=== PATIENT | male | born 1960 | race Caucasian/White ===

== ENCOUNTER 2020-07-09 11:57 | Outpatient (RCR) | payer OTHER, SELFPAY ==
[2020-07-09] MEDS: COVID-19 VACC, MRNA(PFIZER)/PF 30 MCG/0.3 ML SYRINGE IM (17:57)
[2020-07-30] MEDS: COVID-19 VACC, MRNA(PFIZER)/PF 30 MCG/0.3 ML SYRINGE IM (17:45)
== END 2020-07-09 23:59 ==
LOC: IMMUN 11:57
PROVIDERS: PCP Family Medicine; Visit Provider Family Medicine
DX: Z23 Encounter for immunization (principal)
CPT/HCPCS: 0001A; 0002A; 91300

== ENCOUNTER 2024-04-12 12:26 | Inpatient (IN) | payer MEDICARE, SELFPAY ==
[2024-04-12 12:26] VITALS: BP 126/107; BP 131/108; PULSE 128; PULSE 130; RESP 14; RESP 16; TEMP 37.2; O2SAT 100; O2SAT 98; BMI 29.9
--- NOTE | 2024-04-12 12:36 | EKG12_ITS ---
Test Reason : ABD PAIN Blood Pressure : */* mmHG Vent. Rate : 95 BPM Atrial Rate : 95 BPM P-R Int : 138 ms QRS Dur : 72 ms QT Int : 342 ms P-R-T Axes : 38 29 40 degrees QTcB Int : 429 ms Normal sinus rhythm Normal ECG Confirmed by CLAUDIA KRAFT, KHLOE ([id number]), editorial cartoonist DEISY STEIN ([id number]) on 04/16/2024 1:37:36 P M Referred By: Confirmed By: KHLOE TAYLOR MD
[2024-04-12 13:01] LABS: Absolute Lymphocyte Count 1.51 X10^3/uL (0.83-4.51); Absolute Neutrophil Count 10.7 X10^3/uL (2.0-7.7); Basophil# 0.06 X10^3/uL; Basophil% 0.4 % (0-1); Hematocrit 48.9 % (40-54); Hemoglobin 15.5 g/dL (13.0-16.5); Lymphocyte # 1.51 X10^3/ul (0.83-4.51); Lymphocyte % 11.1 % (19-41); Mean Corp Hgb Conc 31.7 g/dL (32-36); Mean Corpuscular Hgb 26.8 pg (27.0-32.0); Mean Corpuscular Volume 84.5 fL (80-94); Mean Platelet Vol. 9.3 fl (6.2-12.0); Monocyte# 1.22 X10^3/uL; NRBC Flagged by Analyzer 0 % (0-5); Neutrophil # 10.73 X10^3/uL (2.7-7.7); Neutrophil % 78.8 % (47-70); Platelet Count 507 K/mm3 (150-450); RBC Distribution Width CV 14.2 % (11.6-14.6); RBC Distribution Width SD 43.3 fl (35.1-43.9); Red Blood Count 5.79 M/mm3 (4.6-6.2); White Blood Count 13.6 K/mm3 (4.4-11.0)
[2024-04-12] MEDS: 0.9% Normal Saline (1000mL) 1,000 ML 999 ML IV (13:07)
[2024-04-12] MEDS: Metoclopramide 10 MG/2 ML Vial IV (13:07)
[2024-04-12 13:15] LABS: ALB/GLOB Ratio 0.9 RATIO (0.9-2.4); AST(SGOT) 13 U/L (15-37); Alanine Aminotransfer ALT/SGPT 22 U/L (16-61); Albumin, Serum 4.2 g/dL (3.2-5.0); Alkaline Phosphatase 88 U/L (45-117); Anion Gap 10 (5-15); BUN 20 mg/dL (7-18); BUN/Creat Ratio 15.4 RATIO (10-20); Calcium,Total 9.8 mg/dL (8.5-10.1); Chloride 97 mmol/L (98-107); EST Glomerular Filtration Rate 59 mL/min (>60); Est Glom Filt Rate - Afr Amer 71 mL/min (>60); Estimated Creatinine Clearance 61.51 ml/min; Globulin 4.8 g/dL (2.2-4.2); Glucose 188 mg/dL (74-106); Lipase 28 U/L (13-75); Potassium 4.5 mmol/L (3.5-5.1); Sodium Level 134 mmol/L (136-145)
--- NOTE | 2024-04-12 13:16 | CT_ITS ---
HISTORY: Lower abdominal pain, RLQ and LLQ. TECHNIQUE: Helically acquired images were obtained of the abdomen and pelvis after the intravenous administration of 100 mL Isovue-300. A radiation dose optimization technique was used for this scan. 443 images. COMPARISON: None. FINDINGS: LOWER CHEST: Mild nodular tree-in-bud opacities in the lingula and left lower lobe. Calcified left lower lobe granuloma. BOWEL: Multiple mildly dilated fluid-filled small bowel loops with fecalization distally and right lower quadrant transition point. Mild mesenteric edema. Appendix nondilated. Mild colonic diverticulosis without acute pericolonic inflammation. Rectal anastomosis with mild circumferential rectal wall thickening or distally. PERITONEUM: Mild mesenteric edema and free fluid. LIVER: Fatty infiltration. 4 mm hypodensity in the right lobe, too small to characterize. GALLBLADDER/BILIARY TREE: Hypodense gallstone. SPLEEN/PANCREAS: Homogeneous and nonenlarged. ADRENAL GLANDS/KIDNEYS: Unremarkable. VESSELS: No abdominal aortic aneurysm. Mild atherosclerosis. PELVIC ORGANS: Mildly enlarged prostate gland with impression on the bladder base. ABDOMINAL WALL: Small fat-containing ventral and inguinal hernias. BONES: Mild degenerative change. CT/Abdomen/Pelvis W IV Cont ONLY IMPRESSION: Small bowel obstruction with right lower quadrant transition point, mild mesenteric edema, and mild free fluid. Mild rectal wall edema or inflammation distal to the rectal anastomosis. Colonic diverticulosis without acute diverticulitis. Mild infectious or inflammatory bronchiolitis in the left lung base. Hepatic steatosis. Cholelithiasis. Enlarged and heterogeneous prostate gland. Electronically Signed: Talita Han MD at 14:22 EST ,
--- NOTE | 2024-04-12 13:23 | EX.ED.DYSGE1 ---
HPI History of Present Illness Chief Complaint: Abd Pain Narrative Narrative: Patient is a 63-year-old male past medical history of colon cancer with resection in 2009 who presents to the emergency department with a chief complaint of abdominal pain. Patient states that on Sunday evening he went out to dinner and then by morning he was feeling bloated and not feeling well. He states that then he developed nausea vomiting. He states that he was seen at urgent care shortly after symptoms started for a cough and he states that he had a chest x-ray at that point in time and was normal and no concern for pneumonia. Patient states that he has lower abdominal pain on both sides and notes that he is unable to take anything in by mouth. He states that immediately if he eats or drinks anything he immediately vomits this up. He states that he has been trying Zofran that he was given by urgent care and is not helping him. PFSH PFS Allergy/AdvReac Type Severity Reaction Status Date / Time No Known Allergies Allergy Verified 04/12/24 12:27 Social History Smoking Status: Never smoker ROS ROS ED ROS Narrative Constitutional: Denies any fevers, chills, headaches, lightness, dizziness Eyes: Denies changes double vision blurry vision Cardiovascular: Denies chest pain or palpitations Respiratory: Denies coughing wheezing shortness of breath Abdomen: Complains of abdominal pain as noted above in as well as nausea vomiting : Denies any urinary symptoms Neurological: Denies numbness, weakness, tingling Musculoskeletal: Denies back pain Skin: Denies rashes or lesions EXAM Physical Exam Narrative Exam Narrative: General: Patient lying in bed rest comfortably did not appear to be acute distress Head: Atraumatic, normocephalic Eyes: PERRL body, EOMI bilateral, no conjunctival injection noted Neck: Soft, supple, trach midline Cardiovascular: Patient tachycardic with a regular rhythm no murmurs gallops rubs noted Respiratory: Clear to auscultation bilaterally Abdomen: Soft, nondistended, tenderness palpation in the right lower and left lower quadrants no rebound or guarding on exam Extremities: +5/5 strength noted in the bilateral upper and lower extremities, no pedal edema on exam Neurological: Patient following commands knew that he was at [facility] years 2024 Skin: Warm, dry, intact Const Vital Signs: 04/12/24 12:26 04/12/24 12:26 04/12/24 14:26 Temperature 99 F Temperature Source Temporal Pulse Rate 130 H 128 H 78 Respiratory Rate 14 16 16 Blood Pressure 131/108 H 126/107 H 138/76 H Blood Pressure Mean 115 113 96 Pulse Ox 98 100 98 Oxygen Delivery Method Room Air Room Air Room Air MDM MDM MDM Narrative Medical decision making narrative: Patient is a 63-year-old male who presented to the emergency department chief complaint of abdominal pain nausea vomiting not tolerating oral intake. Patient will have a workup performed here on the differential diagnose includes but not limited to viral gastroenteritis, appendicitis, pancreatitis, cholecystitis, diverticulitis. Once workup is obtained reviewed he will be reevaluated. Patient be given fluids and Reglan. Patient CBC was significant for leukocytosis of 13,000, hemoglobin stable 15.5, platelet count was noted to be 507. Patient sodium was 134, potassium normal at 4.5, creatinine normal at 1.30. Patient's AST and ALT were 13 and 22 respectively, total bilirubin elevated to 1.10. Patient's lipase normal at 28. Patient's urinalysis reviewed and showed no evidence of infection. Patient CT abdomen pelvis with IV contrast showed evidence small bowel obstruction with right lower quadrant transition point, mild mesenteric edema and mild free fluid. Mild rectal wall edema or inflammation distal to the rectal anastomosis. Colonic diverticulosis without evidence of acute diverticulitis. Mild infectious inflammatory bronchiolitis in the left lung base. Hepatic steatosis. Cholelithiasis. Enlarged and heterogeneous prostate gland noted. Patient's EKG reviewed and independently interpreted by myself showed sinus rhythm with a rate of 95 bpm. I called and discussed case with Dr. Loomis who states he will come in and evaluate the patient at bedside. He came in and evaluated the patient at bedside and states that he will admit the patient to the hospital for further evaluation management. Patient is agreeable with this plan all question concerns answered bedside. Lab Data Labs: Laboratory Results - last 24 hr 04/12/24 04/12/24 12:46 14:15 WBC 13.6 H RBC 5.79 Hgb 15.5 Hct 48.9 MCV 84.5 MCH 26.8 L MCHC 31.7 L RDW Std Deviation 43.3 RDW Coeff of Roel 14.2 Plt Count 507 H MPV 9.3 Immature Gran % (Auto) 0.700 Neut % (Auto) 78.8 H Lymph % (Auto) 11.1 L [place] % (Auto) 9.0 Eos % (Auto) 0.0 Baso % (Auto) 0.4 Absolute Neuts (auto) 10.7 H Absolute Lymphs (auto) 1.51 Nucleated RBC % 0 Sodium 134 L Potassium 4.5 Chloride 97 L Carbon Dioxide 27.0 Anion Gap 10 BUN 20 H Creatinine 1.30 Estim Creat Clear Calc 61.51 Est GFR (MDRD) Af Amer 71 Est GFR (MDRD) Non-Af 59 L BUN/Creatinine Ratio 15.4 Glucose 188 H Calcium 9.8 Total Bilirubin 1.10 H AST 13 L ALT 22 Alkaline Phosphatase 88 Total Protein 9.0 H Albumin 4.2 Globulin 4.8 H Albumin/Globulin Ratio 0.9 Lipase 28 Urine Color Yellow Urine Clarity Clear Urine pH 7.0 Ur Specific [place] 1.005 Urine Protein 15 H Urine Glucose (UA) Normal Urine Ketones 50 H Urine Occult Blood 25 H Urine Nitrite Negative Urine Bilirubin Negative Urine Urobilinogen Normal Ur Leukocyte Esterase Negative Urine RBC 0-5 SEEN Urine WBC 0 SEEN Ur Squamous Epith Cells 0-5 SEEN Urine Bacteria 0 SEEN Urine Mucus 0 SEEN Radiography Diagnostic Testing: Clinical Impression(s) from Imaging Studies Abdomen/Pelvis CT 04/12/24 13:16 IMPRESSION: Small bowel obstruction with right lower quadrant transition point, mild mesenteric edema, and mild free fluid. Mild rectal wall edema or inflammation distal to the rectal anastomosis. Colonic diverticulosis without acute diverticulitis. Mild infectious or inflammatory bronchiolitis in the left lung base. Hepatic steatosis. Cholelithiasis. Enlarged and heterogeneous prostate gland. Electronically Signed: Talita Han MD at 14:22 EST Reading Location ID and State: [facility] / [place] Tel , Service support , Discharge Plan Triage Chief Complaint: Abd Pain ED Provider: Filemon Veloz Dx/Rx/DC Orders Clinical Impression: Small bowel obstruction, Abdominal pain, Intractable nausea and vomiting Primary Care Provider: Bret Mendoza Referrals: Bret Mendoza DO [Primary Care Provider] - Print Language: German Disposition Disposition: [facility]
[2024-04-12 14:22] LABS: Bacteria 0 SEEN /hpf (None Seen); Mucous, Urine 0 SEEN /hpf (<or=2+); White Blood Cells 0 SEEN /hpf (0-5)
[2024-04-12 14:26] VITALS: BP 138/76; PULSE 78; RESP 16; O2SAT 98
[2024-04-12 14:28] LABS: Color, Urine Yellow (Yellow); Glucose, Dipstick Normal (Normal); Ketone-Dipstick 50 mg/dl (Negative); Leukocyte Esterase-Dipstick Negative /ul (Negative); Nitrite-Dipstick Negative (Negative); Occult Blood-Urine 25 /ul (Negative); Protein-Dipstick 15 mg/dl (Negative); Specific Gravity, Urine 1.005 (1.002-1.030); Urine Bilirubin Dipstick Negative (Negative); Urine Clarity Clear (Clear); Urine Urobilinogen Normal (Normal)
[2024-04-12 14:34] LABS: Red Blood Cells-Urine 0-5 SEEN /hpf (0-5); Squamous Epithelial Cells - UA 0-5 SEEN /hpf (0-5)
--- NOTE | 2024-04-12 15:13 | HP.PCM.SX_ITS ---
HPI - General HPI Narrative AMY SOLIS, is a 63 M who presents with abdominal pain and vomiting. The patient reports this has been going on for 3 days. He reports he feels very dry. He is not passing flatus or having bowel movements. He has been vomiting for 3 days as well. PFSH Allergy/AdvReac Type Severity Reaction Status Date / Time No Known Allergies Allergy Verified 04/12/24 12:27 Social History Smoking Status: Never smoker ROS Constitutional Constitutional: Reports anorexia; Denies chills, fatigue or fever(s) Eyes Eyes: Denies blurry vision ENT HEENT: Denies abnormal hearing Respiratory/Chest Respiratory/Chest: Denies cough or dyspnea Gastrointestinal Gastrointestinal: Reports abdominal pain, nausea and vomiting; Denies constipation or diarrhea Genitourinary Genitourinary: Denies change in urinary stream or difficulty urinating Musculoskeletal Musculoskeletal: Denies abnormal gait or back pain Integumentary Integumentary: Denies jaundice or new lesions Neurologic Neurologic: Denies abnormal gait Psychiatric Psychiatric: Denies anxiety Vital Signs Vital Signs Vital Signs: 04/12/24 12:26 04/12/24 12:26 04/12/24 14:26 Temperature 99 F Temperature Source Temporal Pulse Rate 130 H 128 H 78 Respiratory Rate 14 16 16 Blood Pressure 131/108 H 126/107 H 138/76 H Blood Pressure Mean 115 113 96 Pulse Ox 98 100 98 Oxygen Delivery Method Room Air Room Air Room Air Weight Weight: 196 lb 13.965 oz Body Mass Index (BMI) 29.9 Physical Exam Const oriented x3 and no apparent distress Resp normal respiratory effort Cardio regular rate and regular rhythm GI soft to palpation Inspection: abdominal distention Palpation: tender Results Lab / Micro Data 04/12/24 12:46 04/12/24 12:46 Labs: Laboratory Results - last 24 hr 04/12/24 12:46: WBC 13.6 H, RBC 5.79, Hgb 15.5, Hct 48.9, MCV 84.5, MCH 26.8 L, MCHC 31.7 L, RDW Std Deviation 43.3, RDW Coeff of Roel 14.2, Plt Count 507 H, MPV 9.3, Immature Gran % (Auto) 0.700, Neut % (Auto) 78.8 H, Lymph % (Auto) 11.1 L, [place] % (Auto) 9.0, Eos % (Auto) 0.0, Baso % (Auto) 0.4, Absolute Neuts (auto) 10.7 H, Absolute Lymphs (auto) 1.51, Nucleated RBC % 0, Sodium 134 L, Potassium 4.5, Chloride 97 L, Carbon Dioxide 27.0, Anion Gap 10, BUN 20 H, Creatinine 1.30, Estim Creat Clear Calc 61.51, Est GFR (MDRD) Af Amer 71, Est GFR (MDRD) Non-Af 59 L, BUN/Creatinine Ratio 15.4, Glucose 188 H, Calcium 9.8, Total Bilirubin 1.10 H, AST 13 L, ALT 22, Alkaline Phosphatase 88, Total Protein 9.0 H , Albumin 4.2, Globulin 4.8 H, Albumin/Globulin Ratio 0.9, Lipase 28 04/12/24 14:15: Urine Color Yellow, Urine Clarity Clear, Urine pH 7.0, Ur Specific [place] 1.005, Urine Protein 15 H, Urine Glucose (UA) Normal, Urine Ketones 50 H, Urine Occult Blood 25 H, Urine Nitrite Negative, Urine Bilirubin Negative, Urine Urobilinogen Normal, Ur Leukocyte Esterase Negative, Urine RBC 0-5 SEEN, Urine WBC 0 SEEN, Ur Squamous Epith Cells 0-5 SEEN, Urine Bacteria 0 SEEN, Urine Mucus 0 SEEN Micro: Microbiology 04/12/24 12:46 Mucosa - Nasopharyngeal SARS-CoV-2, Influenza & RSV (PCR) - Final Imaging Radiology Impression Abdomen/Pelvis CT 04/12/24 13:16 IMPRESSION: Small bowel obstruction with right lower quadrant transition point, mild mesenteric edema, and mild free fluid. Mild rectal wall edema or inflammation distal to the rectal anastomosis. Colonic diverticulosis without acute diverticulitis. Mild infectious or inflammatory bronchiolitis in the left lung base. Hepatic steatosis. Cholelithiasis. Enlarged and heterogeneous prostate gland. Electronically Signed: Talita Han MD at 14:22 EST , Assessment & Plan Assessment/Plan (1) Small bowel obstruction: PLAN: The patient has abdominal pain and vomiting. He is currently not nauseated. I reviewed his CT scan and there is concern for transition in the right lower quadrant. There is also gas in the colon despite him saying he is not passing any gas. There is some mild amount of fluid. The abdomen is soft but distended with no guarding or rebound. There is [place] is slightly elevated with sores platelets indicating that he is dehydrated and his creatinine is slightly elevated. I will give him a fluid bolus and keep him on IV fluids. I will keep him on bowel rest and if he starts having any nausea he will notify the nurse and we will place an NG tube. Plan for small bowel follow-through after rehydrated and if necessary surgery tomorrow. I discussed this briefly with him and he is agreeable with the plan. Eduardo Loomis MD Pager: [facility] [address] [place] [address], [address] [place] [address] Office:
[2024-04-12 15:25] VITALS: BP 134/61; PULSE 78; RESP 16; TEMP 36.9; O2SAT 99
[2024-04-12] MEDS: Piperacil/Tazobactam 3.375 GM in 0.9% Normal Saline (50mL MB+) 50 ML IV ×2 (15:49→21:17)
[2024-04-12] MEDS: Morphine 4 MG/ML Syringe IV (15:49)
[2024-04-12] MEDS: 0.9% Normal Saline (1000mL) 1,000 ML 100 ML IV (15:50)
[2024-04-12] MEDS: Ondansetron 4 MG/2 ML Vial IV (15:54)
[2024-04-12 16:09] VITALS: BMI 29.9
[2024-04-12 16:28] VITALS: BP 154/82; PULSE 96; RESP 18; TEMP 36.5; O2SAT 99
[2024-04-12 20:33] VITALS: BP 156/87; PULSE 90; RESP 16; TEMP 37.3; O2SAT 97
[2024-04-13 02:10] VITALS: BP 153/96; PULSE 57; RESP 16; TEMP 36.9; O2SAT 97
[2024-04-13] MEDS: 0.9% Normal Saline (1000mL) 1,000 ML 100 ML IV ×2 (05:18→18:22)
[2024-04-13] MEDS: Piperacil/Tazobactam 3.375 GM in 0.9% Normal Saline (50mL MB+) 50 ML IV ×3 (05:18→21:07)
--- NOTE | 2024-04-13 06:15 | RAD_ITS ---
STUDY: XR Abdomen 1 View 04/13/2024 6:21 AM REASON FOR EXAM: Male, 63 years old. ABDOMINAL PAIN sbo TECHNIQUE: XR Abdomen 1 View COMPARISON: None FINDINGS: Normal visualized lung bases. There is a paralytic ileus of the small intestine with mild gaseous distention. There is no demonstrated free abdominal air. The visualized liver, spleen and kidneys are grossly normal in size and morphology. Normal soft tissue structures. Normal visualized PICC. Osseous structures. RAD/Abdomen Single View (Portable) IMPRESSION: Bowel gas pattern may suggest an ileus. Obstruction cannot be excluded. Recommend CT to further evaluate. Electronically Signed: Chas Cody MD at 18:33 EST ,
[2024-04-13 06:23] LABS: Absolute Lymphocyte Count 2.19 X10^3/uL (0.83-4.51); Absolute Neutrophil Count 8.5 X10^3/uL (2.0-7.7); Basophil# 0.07 X10^3/uL; Basophil% 0.6 % (0-1); Eosinophil# 0.06 X10^3/uL; Eosinophils% 0.5 % (0-5); Hematocrit 41.5 % (40-54); Hemoglobin 12.9 g/dL (13.0-16.5); Lymphocyte # 2.19 X10^3/ul (0.83-4.51); Lymphocyte % 17.5 % (19-41); Mean Corp Hgb Conc 31.1 g/dL (32-36); Mean Corpuscular Hgb 26.2 pg (27.0-32.0); Mean Corpuscular Volume 84.3 fL (80-94); Mean Platelet Vol. 9.4 fl (6.2-12.0); Monocyte# 1.61 X10^3/uL; Monocyte% 12.8 % (0-10); NRBC Flagged by Analyzer 0 % (0-5); Neutrophil # 8.53 X10^3/uL (2.7-7.7); POSITIVE DIFFERENTIAL YES; Platelet Count 448 K/mm3 (150-450); RBC Distribution Width CV 14.2 % (11.6-14.6); RBC Distribution Width SD 43.6 fl (35.1-43.9); Red Blood Count 4.92 M/mm3 (4.6-6.2); White Blood Count 12.5 K/mm3 (4.4-11.0)
[2024-04-13 06:50] LABS: Anion Gap 6 (5-15); BUN 18 mg/dL (7-18); BUN/Creat Ratio 17.3 RATIO (10-20); Calcium,Total 8.8 mg/dL (8.5-10.1); Chloride 107 mmol/L (98-107); Creatinine, Serum 1.04 mg/dL (0.70-1.30); EST Glomerular Filtration Rate 76 mL/min (>60); Est Glom Filt Rate - Afr Amer 92 mL/min (>60); Estimated Creatinine Clearance 76.88 ml/min; Glucose 128 mg/dL (74-106); Potassium 4.2 mmol/L (3.5-5.1); Sodium Level 138 mmol/L (136-145)
[2024-04-13 07:07] LABS: Differential Indicated SCAN CRITERIA MET
--- NOTE | 2024-04-13 07:16 | PCM.PN.SRG ---
Subjective Subjective The patient reports no nausea or pain overnight. He says he is passing gas he has had several flatus. He denies pain in and says this distention feels better. Objective Data Objective Data Vital Signs: Vital Signs Temp Pulse Resp BP Pulse Ox O2 Del Method 98.4 F 57 L 16 153/96 H 97 Room Air 04/13/24 02:10 04/13/24 02:10 04/13/24 02:10 04/13/24 02:10 04/13/24 02:10 04/13/24 02:10 Oxygen Delivery Method Room Air Weight: 196 lb 13.965 oz Body Mass Index (BMI) 29.9 Intake & Output: Intake and Output for Last 24 Hours 04/11/24 04/12/24 04/13/24 23:59 23:59 23:59 Intake Total 1221.67 / 1221.67 878.33 / 878.33 Balance 1221.67 / 1221.67 878.33 / 878.33 Lab / Micro Data 04/13/24 05:56 04/13/24 05:56 Labs: Laboratory Results - last 24 hr 04/12/24 12:46: WBC 13.6 H, RBC 5.79, Hgb 15.5, Hct 48.9, MCV 84.5, MCH 26.8 L, MCHC 31.7 L, RDW Std Deviation 43.3, RDW Coeff of Roel 14.2, Plt Count 507 H, MPV 9.3, Immature Gran % (Auto) 0.700, Neut % (Auto) 78.8 H, Lymph % (Auto) 11.1 L, [place] % (Auto) 9.0, Eos % (Auto) 0.0, Baso % (Auto) 0.4, Absolute Neuts (auto) 10.7 H, Absolute Lymphs (auto) 1.51, Nucleated RBC % 0, Sodium 134 L, Potassium 4.5, Chloride 97 L, Carbon Dioxide 27.0, Anion Gap 10, BUN 20 H, Creatinine 1.30, Estim Creat Clear Calc 61.51, Est GFR (MDRD) Af Amer 71, Est GFR (MDRD) Non-Af 59 L, BUN/Creatinine Ratio 15.4, Glucose 188 H, Calcium 9.8, Total Bilirubin 1.10 H, AST 13 L, ALT 22, Alkaline Phosphatase 88, Total Protein 9.0 H, Albumin 4.2, Globulin 4.8 H, Albumin/Globulin Ratio 0.9, Lipase 28 04/12/24 14:15: Urine Color Yellow, Urine Clarity Clear, Urine pH 7.0, Ur Specific [place] 1.005, Urine Protein 15 H, Urine Glucose (UA) Normal, Urine Ketones 50 H, Urine Occult Blood 25 H, Urine Nitrite Negative, Urine Bilirubin Negative, Urine Urobilinogen Normal, Ur Leukocyte Esterase Negative, Urine RBC 0-5 SEEN, Urine WBC 0 SEEN, Ur Squamous Epith Cells 0-5 SEEN, Urine Bacteria 0 SEEN, Urine Mucus 0 SEEN 04/13/24 05:56: WBC 12.5 H, RBC 4.92, Hgb 12.9 L, Hct 41.5, MCV 84.3, MCH 26.2 L, MCHC 31.1 L, RDW Std Deviation 43.6, RDW Coeff of Roel 14.2, Plt Count 448, MPV 9.4, Immature Gran % (Auto) 0.600, Neut % (Auto) 68.0, Lymph % (Auto) 17.5 L, [place] % (Auto) 12.8 H, Eos % (Auto) 0.5, Baso % (Auto) 0.6, Absolute Neuts (auto) 8.5 H, Absolute Lymphs (auto) 2.19, Nucleated RBC % 0, Sodium 138, Potassium 4.2, Chloride 107, Carbon Dioxide 25.0, Anion Gap 6, BUN 18, Creatinine 1.04, Estim Creat Clear Calc 76.88, Est GFR (MDRD) Af Amer 92, Est GFR (MDRD) Non-Af 76, BUN/Creatinine Ratio 17.3, Glucose 128 H, Calcium 8.8 Micro: Microbiology 04/12/24 12:46 Mucosa - Nasopharyngeal SARS-CoV-2, Influenza & RSV (PCR) - Final Radiography Diagnostic Testing: Radiology Impression Abdomen/Pelvis CT 04/12/24 13:16 IMPRESSION: Small bowel obstruction with right lower quadrant transition point, mild mesenteric edema, and mild free fluid. Mild rectal wall edema or inflammation distal to the rectal anastomosis. Colonic diverticulosis without acute diverticulitis. Mild infectious or inflammatory bronchiolitis in the left lung base. Hepatic steatosis. Cholelithiasis. Enlarged and heterogeneous prostate gland. Electronically Signed: Talita Han MD at 14:22 EST , Physical Exam Const oriented x3 and no apparent distress Resp normal respiratory effort GI soft to palpation Inspection: abdominal distention Palpation: Negative for tender Assessment & Plan Assessment/Plan (1) Small bowel obstruction: PLAN: The patient reports no nausea or vomiting overnight and he is passing gas now. His abdomen is less distended and he is not having any pain. He feels just like he needs to pass more gas. I will order a small bowel follow-through for today. If the contrast does not advance I will take him for surgery this afternoon. If he develops any nausea or vomiting with contrast placed NG and I will take him for surgery. Eduardo Loomis MD Pager: [facility] [address] [place] [address], [address] [place] [address] Office:
[2024-04-13 07:51] LABS: Reactive Lymphocyte 1+
[2024-04-13 07:56] VITALS: BP 152/81; PULSE 84; RESP 18; TEMP 36.7; O2SAT 98
--- NOTE | 2024-04-13 09:10 | RAD_ITS ---
INDICATION: Small bowel obstruction. Give contrast PO, take KUB 1 hour after finishing EXAMINATION/TECHNIQUE: X-RAY - XR Abdomen 2 views of the abdomen were obtained 1 hour subsequent to oral administration of Gastrografin. COMPARISON: April 13, 2024 at 6:[address] dated April 12, 2024 FINDINGS: BOWEL GAS PATTERN: There is contrast visualized within a nondistended stomach. There are persistent dilated loops of small bowel. There is contrast within the proximal and mid small bowel. No contrast is visualized within the colon. FREE AIR: Not assessed on a single supine view. ORGANOMEGALY: Not seen. CALCIFICATIONS: No abnormal calcifications observed. LOWER CHEST: No acute pathology. BONES AND SOFT TISSUES: No acute pathology. RAD/Abdomen Single View (Portable) IMPRESSION: Findings suggestive of a small bowel ileus or obstruction. Electronically Signed: Agnes Maria MD at 9:34 EST ,
[2024-04-13] MEDS: 0.9% Saline Lock 10 ML Syringe IV (09:40)
[2024-04-13] MEDS: Ondansetron 4 MG/2 ML Vial IV (09:40)
[2024-04-13] MEDS: Pantoprazole Sodium 40 MG in 0.9% Normal Saline (100mL MB+) 100 ML 330 MG IV (11:09)
--- NOTE | 2024-04-13 11:58 | RAD_ITS ---
INDICATION: Small bowel obstruction EXAMINATION/TECHNIQUE: X-RAY - XR Abdomen 1 View COMPARISON: April 13 at 9:14 AM FINDINGS: BOWEL GAS PATTERN: There is persistent contrast within the stomach. There are persistent dilated contrast and gas-filled loops of small bowel. There are foci of gas within the expected region of the colon. FREE AIR: Not assessed on a single supine view. ORGANOMEGALY: Not seen. CALCIFICATIONS: No abnormal calcifications observed. LOWER CHEST: No acute pathology. BONES AND SOFT TISSUES: No acute pathology. RAD/Abdomen Single View (Portable) IMPRESSION: Findings concerning for a small bowel obstruction or ileus. Electronically Signed: Agnes Maria MD at 13:27 EST ,
[2024-04-13 14:00] VITALS: BP 155/84; PULSE 83; RESP 18; TEMP 36.9; O2SAT 98
--- NOTE | 2024-04-13 14:20 | RAD_ITS ---
INDICATION: SBO, 6 HOUR EXAMINATION/TECHNIQUE: X-RAY - XR Abdomen 3 views COMPARISON: April 13, 2024 at 12:00 PM FINDINGS: BOWEL GAS PATTERN: There are persistent dilated loops of small bowel containing contrast. There is assisting contrast within the stomach. Contrast is now visualized within the proximal ascending colon. FREE AIR: Not assessed on a single supine view. ORGANOMEGALY: Not seen. CALCIFICATIONS: No abnormal calcifications observed. LOWER CHEST: No acute pathology. BONES AND SOFT TISSUES: No acute pathology. RAD/Abdomen Single View IMPRESSION: Findings suggestive of a partial small bowel obstruction or ileus. Electronically Signed: Agnes Maria MD at 14:42 EST ,
[2024-04-13 15:06] VITALS: BP 155/81; PULSE 83; RESP 16; TEMP 36.9; O2SAT 98
[2024-04-13] MEDS: proCHLORPERazine 10 MG/2 ML Vial IV (15:40)
--- NOTE | 2024-04-13 16:01 | NURSING ---
Ng placed in right nare. Xray called to verified palcement.
--- NOTE | 2024-04-13 16:05 | RAD_ITS ---
INDICATION: ng placement EXAMINATION/TECHNIQUE: X-RAY - XR Abdomen 1 View COMPARISON: April 13, 2024 at 2:10 PM FINDINGS: BOWEL GAS PATTERN: There is contrast visualized within the stomach. There are persistent dilated loops of small bowel. There is contrast within the small bowel and ascending colon. There is a nasogastric tube terminating within the expected region of the distal gastric body. FREE AIR: Not assessed on a single supine view. ORGANOMEGALY: Not seen. CALCIFICATIONS: No abnormal calcifications observed. LOWER CHEST: No acute pathology. BONES AND SOFT TISSUES: No acute pathology. RAD/Abdomen Single View (Portable) IMPRESSION: Nasogastric tube terminating within the expected region of the gastric body. Small bowel ileus or partial small bowel obstruction. Electronically Signed: Agnes Maria MD at 16:26 EST ,
[2024-04-13 20:00] VITALS: BP 153/89; PULSE 98; RESP 16; TEMP 36.7; O2SAT 97
[2024-04-14 02:32] VITALS: BP 159/89; PULSE 96; RESP 16; TEMP 37.1; O2SAT 95
[2024-04-14] MEDS: Piperacil/Tazobactam 3.375 GM in 0.9% Normal Saline (50mL MB+) 50 ML IV (05:31)
--- NOTE | 2024-04-14 06:30 | RAD_ITS ---
INDICATION: sbo EXAMINATION/TECHNIQUE: X-RAY - Supine AP view. COMPARISON: 04/13/2024. FINDINGS: Enteric tube side-port and distal tip are distal to the GE junction and right of midline likely in the distal stomach/proximal duodenum. BOWEL GAS PATTERN: Again seen are dilated loops of small bowel. Contrast is seen throughout the colon. No significant stool retention. CALCIFICATIONS: No abnormal calcifications identified. LOWER CHEST: Visualized lung bases are unremarkable. BONES AND SOFT TISSUES: No acute abnormality. RAD/Abdomen Single View (Portable) IMPRESSION: Dilated loops of small bowel with contrast seen throughout the colon. Findings most likely represent ileus or partial small bowel obstruction. Electronically Signed: Brian Aguilar DO at 7:39 EST ,
[2024-04-14 06:35] VITALS: BMI 29.9
[2024-04-14 06:51] LABS: Absolute Lymphocyte Count 2.19 X10^3/uL (0.83-4.51); Absolute Neutrophil Count 7.8 X10^3/uL (2.0-7.7); Basophil# 0.07 X10^3/uL; Basophil% 0.6 % (0-1); Eosinophil# 0.09 X10^3/uL; Eosinophils% 0.8 % (0-5); Hematocrit 38.3 % (40-54); Hemoglobin 11.9 g/dL (13.0-16.5); Lymphocyte # 2.19 X10^3/ul (0.83-4.51); Lymphocyte % 18.6 % (19-41); Mean Corp Hgb Conc 31.1 g/dL (32-36); Mean Corpuscular Hgb 26.7 pg (27.0-32.0); Mean Corpuscular Volume 85.9 fL (80-94); Mean Platelet Vol. 9.3 fl (6.2-12.0); Monocyte# 1.52 X10^3/uL; Monocyte% 12.9 % (0-10); NRBC Flagged by Analyzer 0 % (0-5); Neutrophil # 7.81 X10^3/uL (2.7-7.7); Neutrophil % 66.3 % (47-70); POSITIVE DIFFERENTIAL YES; Platelet Count 418 K/mm3 (150-450); RBC Distribution Width CV 14.1 % (11.6-14.6); RBC Distribution Width SD 43.8 fl (35.1-43.9); Red Blood Count 4.46 M/mm3 (4.6-6.2); White Blood Count 11.8 K/mm3 (4.4-11.0)
[2024-04-14 07:14] LABS: Differential Indicated SCAN CRITERIA MET
[2024-04-14 07:16] LABS: Anion Gap 5 (5-15); BUN 18 mg/dL (7-18); BUN/Creat Ratio 19.3 RATIO (10-20); Calcium,Total 8.5 mg/dL (8.5-10.1); Chloride 111 mmol/L (98-107); Creatinine, Serum 0.93 mg/dL (0.70-1.30); EST Glomerular Filtration Rate 86 mL/min (>60); Est Glom Filt Rate - Afr Amer 104 mL/min (>60); Estimated Creatinine Clearance 85.98 ml/min; Glucose 112 mg/dL (74-106); Potassium 3.7 mmol/L (3.5-5.1); Sodium Level 143 mmol/L (136-145)
[2024-04-14 07:55] LABS: Hemoglobin A1c 6.1 % (3.8-5.6)
--- NOTE | 2024-04-14 08:12 | NURSING ---
NG out at this time.
[2024-04-14 08:19] VITALS: BP 155/75; PULSE 89; RESP 18; TEMP 36.7; O2SAT 96
--- NOTE | 2024-04-14 09:15 | PN.SURG_ITS ---
Subjective Subjective He is not having any pain or abdominal distention this morning.Patient reports having multiple liquid bowel movements overnight. Objective Data Objective Data Vital Signs: Vital Signs Temp Pulse Resp BP Pulse Ox O2 Del Method 98.1 F 89 18 155/75 H 96 Room Air 04/14/24 08:19 04/14/24 08:19 04/14/24 08:19 04/14/24 08:19 04/14/24 08:19 04/14/24 08:19 Oxygen Delivery Method Room Air Weight: 196 lb 13.965 oz Body Mass Index (BMI) 29.9 Intake & Output: Intake and Output for Last 24 Hours 04/12/24 04/13/24 04/14/24 23:59 23:59 23:59 Intake Total 1221.67 / 1221.67 2538.33 / 2568.33 1154.79 / 1154.79 Output Total 200 / 500 300 / 300 Balance 1221.67 / 1221.67 2338.33 / 2068.33 854.79 / 854.79 Lab / Micro Data 04/14/24 06:08 04/14/24 06:08 Labs: Laboratory Results - last 24 hr 04/14/24 06:08: WBC 11.8 H, RBC 4.46 L, Hgb 11.9 L, Hct 38.3 L, MCV 85.9, MCH 26.7 L, MCHC 31.1 L, RDW Std Deviation 43.8, RDW Coeff of Roel 14.1, Plt Count 418, MPV 9.3, Immature Gran % (Auto) 0.800, Neut % (Auto) 66.3, Lymph % (Auto) 18.6 L, [place] % (Auto) 12.9 H, Eos % (Auto) 0.8, Baso % (Auto) 0.6, Absolute Neuts (auto) 7.8 H, Absolute Lymphs (auto) 2.19, Nucleated RBC % 0, Differential Comment COMMENT, Diff Path Review August, Sodium 143, Potassium 3.7, Chloride 111 H, Carbon Dioxide 27.0, Anion Gap 5, BUN 18, Creatinine 0.93, Estim Creat Clear Calc 85.98, Est GFR (MDRD) Af Amer 104, Est GFR (MDRD) Non-Af 86, BUN/Creatinine Ratio 19.3, Glucose 112 H, Hemoglobin A1c 6.1 H, Calcium 8.5 Micro: Microbiology 04/12/24 12:46 Mucosa - Nasopharyngeal SARS-CoV-2, Influenza & RSV (PCR) - Final Radiography Diagnostic Testing: Radiology Impression KUB X-Ray 04/13/24 06:15 IMPRESSION: Bowel gas pattern may suggest an ileus. Obstruction cannot be excluded. Recommend CT to further evaluate. Electronically Signed: Chas Cody MD at 18:33 EST , KUB X-Ray 04/13/24 09:10 IMPRESSION: Findings suggestive of a small bowel ileus or obstruction. Electronically Signed: Agnes Maria MD at 9:34 EST , KUB X-Ray 04/13/24 11:58 IMPRESSION: Findings concerning for a small bowel obstruction or ileus. Electronically Signed: Agnes Maria MD at 13:27 EST , KUB X-Ray 04/13/24 14:20 IMPRESSION: Findings suggestive of a partial small bowel obstruction or ileus. Electronically Signed: Agnes Maria MD at 14:42 EST , KUB X-Ray 04/13/24 16:05 IMPRESSION: Nasogastric tube terminating within the expected region of the gastric body. Small bowel ileus or partial small bowel obstruction. Electronically Signed: Agnes Maria MD at 16:26 EST , KUB X-Ray 04/14/24 06:30 IMPRESSION: Dilated loops of small bowel with contrast seen throughout the colon. Findings most likely represent ileus or partial small bowel obstruction. Electronically Signed: Brian Aguilar, at 7:39 EST , Physical Exam Const oriented x3 and no apparent distress Resp normal respiratory effort GI soft to palpation and non-tender Assessment & Plan Assessment/Plan (1) Small bowel obstruction: PLAN: Patient has small bowel follow-through yesterday. The contrast did make it to the colon and he is having bowel movements this morning. He still has some dilated loops of small bowel. He is not having any distention and his bowel sounds are improved. He had an NG in overnight which only put out 300 cc of bilious material with no feculent material or signs of obstruction. I will remove the NG and start some sips and chips and go very slowly diet and possibly start clears for lunch. If he does not tolerate a diet he will go for surgery tomorrow. Patient is in agreement with the plan. Eduardo Loomis MD Pager: [facility] [address] [place] [address], [address] [place] [address] Office:
[2024-04-14] MEDS: Acetaminophen 325 MG Tablet 650 MG PO (09:58)
[2024-04-14] MEDS: Pantoprazole Sodium 40 MG in 0.9% Normal Saline (100mL MB+) 100 ML 330 MG IV (10:01)
--- NOTE | 2024-04-14 10:59 | CASEMGMT ---
GIORGI ANDERSON Assessment Face to Face with patient for initial transition planning/care coordination assessment. GIORGI ANDERSON introduced self and role at [facility], pt voices understanding. Pt is A&Ox4 and is resting comfortably in bed and is calm. Care providers, pharmacy, and demographics verified. Admitting dx: SBO AUBREYE Strata: 1 PCP: Bret Mendoza Specialists: Denies Preferred Pharmacy: [facility] Insurance: [facility] Prescription Benefit: Yes LNOK: Sahra () Living Arrangements:Pt lives with his in a ranch style home with 2 steps to enter ADLs/IADLs: Ind Transportation: self, DME: Functioning BGM with sufficient supplies. BP Monitor. Pulse ox HHC/SNF: Denies Hx or needs Pt?s goal: Return home Plan: Home with pt , no additional needs. 6-click score is 24. Pt denies OP Tx or CCN needs. Pt states that he feels safe returning home with his once he is medically ready and denies further questions or concerns at this time. Payton Slaughter RN, CM
--- NOTE | 2024-04-14 11:00 | NURSING ---
Ambulating in the gonzalez at this time. HAs been tolerating ice chips and sips and water thus far.
--- NOTE | 2024-04-14 12:14 | CHAPLAIN ---
Type of Pastoral Visit _x__ Initial Visit ___ Follow-up Visit ___ On-call Visit ___ General Patient Visit ___ Spiritual Assessment ___ Family Conference ___ Bereavement ___ Rapid Response ___ Code Blue ___ Other (describe below) Pastoral Care Referral From _x__ Patient ___ Family ___ Nurse ___ Physician ___ Jewelry Technician ___ Upper Leather Cutter ___ Other (describe below) Sacrament/Intervention _x__ Active listening ___ Anointing ___ Amish ___ Bereavement ___ Communion _x__ Mari exploration ___ ___ Life review _x__ Prayer ___ Reconciliation ___ Sacrament of Sick ___ Supportive presence ___ Wedding ___ Other (describe below) Pastoral Comments patient is making improvements and is hopeful about his outcome; pt speaks of having many prayers being given and they are working; pt has a excavating contractor that visited this morning; pt welcomes time to talk and asks his own questions; pt affirms the care of this hospital and would recommend it over where my doctor works; pt welcomes more prayer; no other needs at this time
[2024-04-14 16:23] VITALS: BP 147/73; PULSE 72; RESP 19; TEMP 36.7; O2SAT 99
[2024-04-14 16:54] LABS: Bedside Glucose 171 mg/dL (74-106)
[2024-04-14 22:20] VITALS: BP 153/78; PULSE 70; RESP 18; TEMP 37; O2SAT 99
[2024-04-14 23:48] LABS: Bedside Glucose 127 mg/dL (74-106)
[2024-04-15] VITALS (14 sets, daily range): BP systolic 147–168; BP diastolic 56–90; PULSE 71–98; RESP 12–20; TEMP 36.6–37.4; O2SAT 91–100; BMI 29.9
[2024-04-15 06:57] LABS: Absolute Lymphocyte Count 2.45 X10^3/uL (0.83-4.51); Absolute Neutrophil Count 7.6 X10^3/uL (2.0-7.7); Basophil# 0.07 X10^3/uL; Basophil% 0.6 % (0-1); Eosinophil# 0.14 X10^3/uL; Eosinophils% 1.2 % (0-5); Hematocrit 37.4 % (40-54); Hemoglobin 11.3 g/dL (13.0-16.5); Lymphocyte # 2.45 X10^3/ul (0.83-4.51); Lymphocyte % 20.9 % (19-41); Mean Corp Hgb Conc 30.2 g/dL (32-36); Mean Corpuscular Hgb 25.9 pg (27.0-32.0); Mean Corpuscular Volume 85.6 fL (80-94); Mean Platelet Vol. 9.2 fl (6.2-12.0); Monocyte# 1.33 X10^3/uL; Monocyte% 11.4 % (0-10); NRBC Flagged by Analyzer 0 % (0-5); Neutrophil # 7.62 X10^3/uL (2.7-7.7); Platelet Count 427 K/mm3 (150-450); RBC Distribution Width CV 13.9 % (11.6-14.6); RBC Distribution Width SD 43.3 fl (35.1-43.9); Red Blood Count 4.37 M/mm3 (4.6-6.2); White Blood Count 11.7 K/mm3 (4.4-11.0)
--- NOTE | 2024-04-15 07:25 | PCM.PN.SRG ---
Subjective Subjective The patient tolerated clears yesterday. However he reported that after dinner he started feeling more distended and overnight this did not resolve. He is not passing any flatus. He denies vomiting. He feels more distended than yesterday. Objective Data Objective Data Vital Signs: Vital Signs Temp Pulse Resp BP Pulse Ox O2 Del Method 98.2 F 80 14 155/83 H 96 Room Air 04/15/24 04:42 04/15/24 04:42 04/15/24 04:42 04/15/24 04:42 04/15/24 04:42 04/15/24 04:42 Oxygen Delivery Method Room Air Weight: 196 lb 13.965 oz Body Mass Index (BMI) 29.9 Intake & Output: Intake and Output for Last 24 Hours 04/13/24 04/14/24 04/15/24 23:59 23:59 23:59 Intake Total 2538.33 / 2568.33 2564.79 / 2564.79 450 / 450 Output Total 200 / 500 300 / 300 Balance 2338.33 / 2068.33 2264.79 / 2264.79 450 / 450 Lab / Micro Data 04/15/24 06:03 04/14/24 06:08 Labs: Laboratory Results - last 24 hr 04/14/24 06:08: Differential Comment COMMENT, Diff Path Review Rose river[place], Hemoglobin A1c 6.1 H 04/14/24 16:24: POC Glucose 171 H 04/14/24 22:27: POC Glucose 127 H 04/15/24 06:03: WBC 11.7 H, RBC 4.37 L, Hgb 11.3 L, Hct 37.4 L, MCV 85.6, MCH 25.9 L, MCHC 30.2 L, RDW Std Deviation 43.3, RDW Coeff of Roel 13.9, Plt Count 427, MPV 9.2, Immature Gran % (Auto) 0.900, Neut % (Auto) 65.0, Lymph % (Auto) 20.9, [place] % (Auto) 11.4 H, Eos % (Auto) 1.2, Baso % (Auto) 0.6, Absolute Neuts (auto) 7.6, Absolute Lymphs (auto) 2.45, Nucleated RBC % 0 Micro: Microbiology 04/12/24 12:46 Mucosa - Nasopharyngeal SARS-CoV-2, Influenza & RSV (PCR) - Final Radiography Diagnostic Testing: Radiology Impression KUB X-Ray 04/14/24 06:30 IMPRESSION: Dilated loops of small bowel with contrast seen throughout the colon. Findings most likely represent ileus or partial small bowel obstruction. Electronically Signed: Brian Aguilar, at 7:39 EST Reading Location ID and State: [facility] / [place] Tel , Service support , Physical Exam Const oriented x3 and no apparent distress Resp normal respiratory effort GI soft to palpation Inspection: abdominal distention Assessment & Plan Assessment/Plan (1) Small bowel obstruction: PLAN: The patient has a partial small bowel obstruction that is not resolving conservatively. I recommended surgery at this point. I discussed laparoscopy with possible conversion to open depending on scar tissue and possible bowel resection. I discussed the risks including but not limited to bleeding, infection, injury other organs. Patient understands the risks and is willing to proceed. Eduardo Loomis MD Pager: [facility] [address] [place] [address], [address] [place] [address] Office:
[2024-04-15 07:47] LABS: Anion Gap 4 (5-15); BUN 13 mg/dL (7-18); BUN/Creat Ratio 14.1 RATIO (10-20); Calcium,Total 8.6 mg/dL (8.5-10.1); Chloride 107 mmol/L (98-107); Creatinine, Serum 0.92 mg/dL (0.70-1.30); EST Glomerular Filtration Rate 87 mL/min (>60); Est Glom Filt Rate - Afr Amer 105 mL/min (>60); Estimated Creatinine Clearance 86.91 ml/min; Glucose 112 mg/dL (74-106); Potassium 3.4 mmol/L (3.5-5.1); Sodium Level 140 mmol/L (136-145)
[2024-04-15] MEDS: 0.9% Normal Saline (1000mL) 1,000 ML 15 ML IV (09:00)
--- NOTE | 2024-04-15 09:52 | PCM.PRE.AN2 ---
ASA Classification* ASA Classification ASA Classification: 2 Assessment & Plan Anesthesia* Anesthesia Assessment Anesthesia Assessment: Discussed sedation and/or anesthesia options, risks, benefits, and alternatives with patient/parents/legal guardian/POA. Questions invited. The patient/parents/legal guardian/POA seems to understand and agrees to proceed with anesthesia plan. Reviewed the physical assessment, medical history, allergy history and patient home medications list prior to surgery/procedure/anesthetic and documented any changes. Performed airway and anesthesia risk assessments. Anesthesia Type Anesthesia Type: General History Source History Obtained from:: Patient and Chart Anesthesia Focused Assessment* Temperature: 98.6 F Pulse Rate: 71 Blood Pressure: 167/88 Respiratory Rate: 12 Pulse Ox: 98 Oxygen Delivery Method: Room Air Airway Assessment Mouth opens: >3 cm Mallampati Score: II Teeth Condition: Intact Neck Range of motion (ROM): Limited ROM (Slight decrease in extension) Focused Labs Anesthesia Preop lab: CBC WBC 11.7 K/mm3 (4.4-11.0) H 04/15/24 06:03 RBC 4.37 M/mm3 (4.6-6.2) L 04/15/24 06:03 Hgb 11.3 g/dL (13.0-16.5) L 04/15/24 06:03 Hct 37.4 % (40-54) L 04/15/24 06:03 Plt Count 427 K/mm3 (150-450) 04/15/24 06:03 CHEMISTRY Potassium 3.4 mmol/L (3.5-5.1) L 04/15/24 06:03 Sodium 140 mmol/L (136-145) 04/15/24 06:03 BUN 13 mg/dL (7-18) 04/15/24 06:03 Creatinine 0.92 mg/dL (0.70-1.30) 04/15/24 06:03 Glucose 112 mg/dL (74-106) H 04/15/24 06:03 POC Glucose 127 mg/dL (74-106) H 04/14/24 22:27 COAG Pre-Assessment Diagnosis/Proposed Procedure Planned Operative Procedure(s): Exploratory laparoscopy, possible open, possible bowel resection. Anesthesia History Anesthesia History - national sales representative: Anesthesia History - national sales representative Hx Hospitalization Any Problems With Anesthesia No 04/15/24 08:04 Cholinesterase deficiency No 04/15/24 08:04 You/Your Family Experience No 04/15/24 08:04 fever (hyperthermia) with Relationship Recent Exposure to Contagious No 04/15/24 08:04 Disease Does patient have nerve No 04/15/24 08:04 stimulator Patient instructed to have device shut off --Does patient have Pacemaker No 04/15/24 08:04 or ICD? When Was Last Pacemaker Check QUESTION #4 FULL TEXT: You/Your Family Experience fever (hyperthermia) with Anesthesia Last Oral Intake Last Oral intake: Last Oral Intake NPO since 07:07 04/15/24 08:04 Meds taken in AM with sips of No 04/15/24 08:04 water? Meds patient instructed to take am of surgery Any additional information?: Yes NPO since: 02:00 (Patient had water at 2 AM.) PONV PONV - national sales representative: PONV - national sales representative Female HX of Motion Sickness HX of N/V After Surgery Non-Smoker Duration of Surgery greater than 60 minutes Number of Risk Factors PONV Score Height & Weight Height & Weight: Anesthesia: Height & Weight Height 5 ft 8 in 04/15/24 08:04 Weight: 89.3 kg 04/15/24 08:04 Body Mass Index (BMI) 29.9 04/15/24 08:04 Respiratory Assessment Respiratory Assessment - national sales representative: Respiratory Tract Infection Hx - national sales representative Hx Respiratory Tract Infection Yes: Cold s/sx last week 04/15/24 08:04 Any additional information?: Yes Hx Respiratory Tract Infection: Yes (+ cough.) STOP Sleep Apnea STOP Sleep Apnea - national sales representative: STOP Sleep Apnea - national sales representative Hx Hypertension Yes 04/12/24 16:09 Hx Sleep Apnea No 04/12/24 16:09 CPAP BIPAP Do you snore loudly (louder Yes 04/12/24 16:09 than talking or can be heard Do you often feel tired/ No 04/12/24 16:09 fatigued/ sleepy during daytime? Has anyone observed you stop No 04/12/24 16:09 breathing during sleep? STOP Results Positive 04/12/24 16:09 QUESTION #5 FULL TEXT : Do you snore loudly (louder than talking or can be heard through closed doors)? Tobacco Use History Tobacco Use History - national sales representative: Tobacco Use History - national sales representative Tobacco Use Smoking Status Never smoker 04/12/24 16:09 Hx Tobacco Use No 04/12/24 16:09 Years Smoking Packs Smoked per Day Smoking Cessation Date was within the last 15 years Hx Smoking Cessation Date Hx Smoking Cessation Counseling Hematologic Medial History Hematologic Hx - national sales representative: Hematologic Medical Hx - erosion control coordinator Hx of Blood Transfusion No 04/12/24 16:09 Hx of Transfusion in last 3 No 04/12/24 16:09 Months Date of Last Transfusion (if within last 3 months) Ever experience any problems No 04/12/24 16:09 with transfusion(s)? Specify any problems Hx of Preganancy in last 3 N/A 04/12/24 16:09 Months Nurse Filling Out Transfusion NMARTY 04/12/24 16:09 & Questions: Date: 04/12/24 04/12/24 16:09 Time: 16:19 04/12/24 16:09 Patient unable to answer at this time (ie. confused, unrespo /Reproduction History /Reproductive History - national sales representative: /Reproductive Hx- national sales representative Hx Now No: na 04/15/24 08:04 Gestational Age (in weeks): EDC: Hx Hx Para Hx Section SAB No 04/15/24 08:04 Active Medications Active Medications: Current Medications Generic Name Dose Route Start Last Admin Trade Name Freq PRN Reason Stop Dose Admin Acetaminophen 650 mg 04/14/24 09:00 04/14/24 09:58 Acetaminophen 325 Mg Tablet PO 650 mg Q4H PRN PRN Administration Pain 1-10 or Fever Pantoprazole Sodium 40 mg/ 110 mls @ 330 mls/hr 04/13/24 10:00 04/14/24 10:25 Sodium Chloride IV Infused Q24 SISI Infusion Sodium Chloride 100 mls @ 15 mls/hr 04/12/24 16:27 IV .Q6H40M PRN Saline Flush Sodium Chloride 100 mls @ 15 mls/hr 04/12/24 16:27 IV .Q6H40M PRN Additional IVPB Infusion Sodium Chloride 1,000 mls @ 15 mls/hr 04/15/24 08:55 IV 04/20/24 22:14 .Q48H SISI Protocol Morphine Sulfate 2 - 4 mg 04/12/24 15:17 Morphine 2 Mg/Ml Syringe IV Q2H PRN PRN Pain Score 4-10 Morphine Sulfate 2 - 4 mg 04/12/24 15:38 Morphine 4 Mg/Ml Syringe IV Q2H PRN PRN Pain Score 4-10 Ondansetron HCl 4 mg 04/12/24 15:17 04/13/24 09:40 Ondansetron 4 Mg/2 Ml Vial IV 4 mg Q6H PRN PRN Administration NAUSEA/VOMITING Prochlorperazine Edisylate 10 mg 04/13/24 14:40 04/13/24 15:40 Prochlorperazine 10 Mg/2 Ml Vial IV 10 mg Q6H PRN PRN Administration NAUSEA/VOMITING Sodium Chloride 10 - 40 ml 04/12/24 15:17 04/13/24 09:40 0.9% Saline Lock 10 Ml Syringe IV 10 ml UD PRN Administration SALINE FLUSH Sodium Chloride 10 - 40 ml 04/12/24 15:17 0.9% Saline Lock 10 Ml Syringe IV UD PRN SALINE FLUSH Sodium Chloride 10 - 40 ml 04/12/24 16:27 0.9% Saline Lock 10 Ml Syringe IV UD PRN SALINE FLUSH PFSH Medical History Cancer Diabetes Asthma Hypertension Home Medications ?Medication ?Instructions ?Recorded ?Last Taken ?Type glimepiride 1 mg tablet 1 mg PO DAILY DM 04/12/24 04/09/24 History losartan 25 mg tablet 25 mg PO DAILY . 04/12/24 04/09/24 History metformin 1,000 mg tablet 1,000 mg PO BID DM 04/12/24 04/09/24 History montelukast 10 mg tablet 10 mg PO DAILY . 04/12/24 04/09/24 History pioglitazone 45 mg tablet 45 mg PO DAILY . 04/12/24 04/09/24 History Allergy/AdvReac Type Severity Reaction Status Date / Time No Known Allergies Allergy Verified 04/12/24 12:27 Surgical History (Updated 04/15/24 @ 10:[address] Johnie De La Cruz MD) S/P colon resection Social History Smoking Status: Never smoker Review of Systems (Anesthesia) ROS Narrative System reviewed and no additional complaints, except as documented.
[2024-04-15] MEDS: Piperacil/Tazobactam 3.375 GM in 0.9% Normal Saline (50mL MB+) 50 ML IV (10:15)
--- NOTE | 2024-04-15 11:40 | PCM.POST.ANE ---
Anesthesia: Postop Eval I Current Vital Signs Temperature: 99.4 F Pulse Rate: 93 Blood Pressure: 155/56 Respiratory Rate: 16 Pulse Ox: 91 Oxygen Delivery Method: Room Air Assessment Airway patent: Yes Spontaneous unlabored respirations: Yes Mental status: Awake nausea: No Vomiting: No Anesthesia Complication: No Fluid Hydration Crystalloid volume administer (ml): 600 Total IV fluid infused: 600 Progress Note Anesthesia document: Postop Eval 1 completed: Yes
--- NOTE | 2024-04-15 11:59 | PCM.OPRPT ---
Operative Report (Standard) Operative Information Date of Procedure: 04/15/24 Pre-Operative Diagnosis: Small bowel obstruction Post-Operative Diagnosis: Small bowel obstruction Surgery/Procedure Performed: Laparoscopy converted to open with lysis of adhesions middle or intermediate school principal: Yes Cultural Anthropology Professor: Teodora Jarrett Tasks completed by physician assistant: Opening, Closing and Retracting Type of Anesthesia: General/Regional RN Documented Start/Stop Times: Operation Date: 04/15/24 09:15 Case Time Into Pre-Op 04/15/24 08:49 Out of Pre-Op 04/15/24 10:07 Anesthesia Start 04/15/24 10:09 Into Room 04/15/24 10:09 Procedure Start 04/15/24 10:33 Procedure End 04/15/24 11:25 Anesthesia End 04/15/24 11:32 Out of Room 04/15/24 11:32 Into Recovery 04/15/24 11:40 Procedure Start Time: 10:33 Procedure Stop Time: 11:25 Select all DRAINS/GRAFTS/IMPLANTS that apply: None Estimated Blood Loss: 20 Specimen collected: No Description of surgery: Patient was brought back to surgery and general anesthesia was induced. A Aponte catheter was placed into the bladder. The abdomen was prepped and draped in usual sterile fashion. An incision was made in the left upper quadrant and using Visiport technique the abdomen was entered and insufflated to 15 mmHg. Camera was inserted to the abdomen. Under direct visualization a right lower quadrant and suprapubic port were placed. Using atraumatic graspers the cecum was identified and the nondistended terminal ileum was followed back until scar tissue was reached. There was dense adherence between the small bowel and mesentery causing the bowel obstruction. I was unable to free this up laparoscopically. And the decision was made to convert to open. The lower midline incision was extended upward into the umbilicus. The fascia was incised using electrocautery. After the incision was open wound protector was placed. The small bowel was delivered through the incision. The adhesions were taken down sharply until the distal bowel was freed. It appeared patent and viable. More adhesions were taken down sharply. The area of small bowel was then run from proximal to distal and it appeared to have less of tapering. The bowel was returned to the abdomen and the wound protector was removed. The midline fascia was closed with a running #1 PDS suture starting from the top and bottom meeting in the middle. The subcutaneous tissue was irrigated dry and hemostasis was obtained. Local anesthetic was used. The incisions were closed with margarita. Dressings were applied. Aponte was removed at the end of the case Surgical Findings: Dense adhesions in the right lower quadrant Complications Complications: No Admit VTE Documentation VTE Mechan Device Prophylaxis: SCD's
--- NOTE | 2024-04-15 12:43 | POSTOPAN2_ITS ---
Anesthesia Postop Eval I Sum Postop Eval Completion status Anesthesia document: Postop Eval 1 completed: Yes Anesthesia Postop Eval I Summary Anesthesia Postop Eval I Summary: Anesthesia Postop Eval I: Assessment Summary Airway patent Yes 04/15/24 11:41 SENIOR CONTROL SYSTEMS ENGINEER.[email or web address] Spontaneous unlabored Yes 04/15/24 11:41 SENIOR CONTROL SYSTEMS ENGINEER.JDEF respirations Mental status Awake 04/15/24 11:41 SENIOR CONTROL SYSTEMS ENGINEER.JDEF nausea No 04/15/24 11:41 SENIOR CONTROL SYSTEMS ENGINEER.JDEF Vomiting No 04/15/24 11:41 SENIOR CONTROL SYSTEMS ENGINEER.JDEF Anesthesia Postop Eval I: Fluid Summary Crystalloid volume administer 600 04/15/24 11:41 SENIOR CONTROL SYSTEMS ENGINEER.JDEF (ml) Colloids volume administered ( ml) Blood Product volume administered (ml) Total IV fluid infused 600 04/15/24 11:41 SENIOR CONTROL SYSTEMS ENGINEER.JDEF Anesthesia Postop Eval I: Summary Notes Anesthesia Complication No 04/15/24 11:41 SENIOR CONTROL SYSTEMS ENGINEER.JDEF Anesthesia Complication Comment: Post-operative progress note Anesthesia: Postop Eval II Evaluation Mental status: Awake Pain Level: 3 nausea: Yes Vomiting: No
--- NOTE | 2024-04-15 12:43 | PCM.POSTANE2 ---
Anesthesia Postop Eval I Sum Postop Eval Completion status Anesthesia document: Postop Eval 1 completed: Yes Anesthesia Postop Eval I Summary Anesthesia Postop Eval I Summary: Anesthesia Postop Eval I: Assessment Summary Airway patent Yes 04/15/24 11:41 FARM [email or web address] Spontaneous unlabored Yes 04/15/24 11:41 FARM [email or web address].[email or web address] respirations Mental status Awake 04/15/24 11:41 FARM [email or web address] nausea No 04/15/24 11:41 FARM RANCHER.JDEF Vomiting No 04/15/24 11:41 FARM [email or web address] Anesthesia Postop Eval I: Fluid Summary Crystalloid volume administer 600 04/15/24 11:41 FARM [email or web address] (ml) Colloids volume administered ( ml) Blood Product volume administered (ml) Total IV fluid infused 600 04/15/24 11:41 FARM [email or web address] Anesthesia Postop Eval I: Summary Notes Anesthesia Complication No 04/15/24 11:41 FARM [email or web address] Anesthesia Complication Comment: Post-operative progress note Anesthesia: Postop Eval II Evaluation Mental status: Awake Pain Level: 3 nausea: Yes Vomiting: No
[2024-04-15] MEDS: Morphine 2 MG/ML Syringe IV ×4 (13:46→22:22)
[2024-04-15] MEDS: 0.9% Saline Lock 10 ML Syringe IV ×4 (13:50→22:23)
[2024-04-15] MEDS: Pantoprazole Sodium 40 MG in 0.9% Normal Saline (100mL MB+) 100 ML 330 MG IV (13:51)
[2024-04-15 15:14] LABS: Pathologist Review Reviewed
[2024-04-15 15:16] LABS: Pathologist Review Reviewed
[2024-04-16 02:18] VITALS: BP 156/88; PULSE 109; RESP 20; TEMP 36.7; O2SAT 98; BMI 29.9
[2024-04-16] MEDS: Morphine 2 MG/ML Syringe IV ×2 (02:40→05:45)
[2024-04-16 05:38] VITALS: BP 152/78; PULSE 102; RESP 20; TEMP 36.6; O2SAT 96
[2024-04-16 05:43] VITALS: BMI 29.9
[2024-04-16 07:43] VITALS: BP 160/89; PULSE 109; RESP 18; TEMP 37.1; O2SAT 93
--- NOTE | 2024-04-16 07:46 | PCM.PN.SRG ---
Subjective Subjective Patient reports no bowel function, No nausea. Pain well controlled Objective Data Objective Data Vital Signs: Vital Signs Temp Pulse Resp BP Pulse Ox O2 Del Method O2 Flow Rate 97.9 F 102 H 20 H 152/78 H 96 Room Air 2 04/16/24 05:38 04/16/24 05:38 04/16/24 05:38 04/16/24 05:38 04/16/24 05:38 04/16/24 05:38 04/15/24 14:00 Oxygen Flow Rate (L/min) 2 Oxygen Delivery Method Room Air Weight: 196 lb 13.965 oz Body Mass Index (BMI) 29.9 Intake & Output: Intake and Output for Last 24 Hours 04/14/24 04/15/24 04/16/24 23:59 23:59 23:59 Intake Total 2564.79 / 2564.79 950 / 950 220 / 220 Output Total 300 / 300 200 / 200 Balance 2264.79 / 2264.79 750 / 750 220 / 220 Lab / Micro Data 04/15/24 06:03 04/15/24 06:03 Labs: Laboratory Results - last 24 hr 04/13/24 05:56: Diff Path Review Reviewed 04/14/24 06:08: Diff Path Review Reviewed 04/15/24 06:03: Sodium 140, Potassium 3.4 L, Chloride 107, Carbon Dioxide 29.0, Anion Gap 4 L, BUN 13, Creatinine 0.92, Estim Creat Clear Calc 86.91, Est GFR (MDRD) Af Amer 105, Est GFR (MDRD) Non-Af 87, BUN/Creatinine Ratio 14.1, Glucose 112 H, Calcium 8.6 Micro: Microbiology 04/12/24 12:46 Mucosa - Nasopharyngeal SARS-CoV-2, Influenza & RSV (PCR) - Final Physical Exam Const oriented x3 and no apparent distress Resp normal respiratory effort GI soft to palpation Palpation: tender Assessment & Plan Assessment/Plan (1) Small bowel obstruction: PLAN: Patient had exploratory laparotomy with lysis of adhesions. There was a band holding the distal ileum. There was no bowel resection. Await bowel function, start IVF. SCDs, start pepcid
[2024-04-16 07:50] LABS: Absolute Lymphocyte Count 1.56 X10^3/uL (0.83-4.51); Absolute Neutrophil Count 13.8 X10^3/uL (2.0-7.7); Basophil# 0.06 X10^3/uL; Basophil% 0.4 % (0-1); Eosinophil# 0.02 X10^3/uL; Eosinophils% 0.1 % (0-5); Hematocrit 42.8 % (40-54); Hemoglobin 13.3 g/dL (13.0-16.5); Lymphocyte # 1.56 X10^3/ul (0.83-4.51); Lymphocyte % 9.1 % (19-41); Mean Corp Hgb Conc 31.1 g/dL (32-36); Mean Corpuscular Hgb 26.5 pg (27.0-32.0); Mean Corpuscular Volume 85.3 fL (80-94); Mean Platelet Vol. 9.4 fl (6.2-12.0); Monocyte# 1.59 X10^3/uL; Monocyte% 9.3 % (0-10); NRBC Flagged by Analyzer 0 % (0-5); Neutrophil # 13.76 X10^3/uL (2.7-7.7); Neutrophil % 80.3 % (47-70); POSITIVE DIFFERENTIAL YES; Platelet Count 473 K/mm3 (150-450); RBC Distribution Width CV 14.2 % (11.6-14.6); RBC Distribution Width SD 43.9 fl (35.1-43.9); Red Blood Count 5.02 M/mm3 (4.6-6.2); White Blood Count 17.1 K/mm3 (4.4-11.0)
[2024-04-16 07:52] LABS: Differential Indicated SCAN CRITERIA MET
[2024-04-16 08:00] LABS: Anion Gap 7 (5-15); BUN 10 mg/dL (7-18); BUN/Creat Ratio 10.3 RATIO (10-20); Calcium,Total 8.7 mg/dL (8.5-10.1); Chloride 103 mmol/L (98-107); Creatinine, Serum 0.98 mg/dL (0.70-1.30); EST Glomerular Filtration Rate 82 mL/min (>60); Est Glom Filt Rate - Afr Amer 99 mL/min (>60); Estimated Creatinine Clearance 81.59 ml/min; Glucose 137 mg/dL (74-106); Potassium 3.5 mmol/L (3.5-5.1); Sodium Level 137 mmol/L (136-145)
[2024-04-16] MEDS: 0.9% Normal Saline (1000mL) 1,000 ML 100 ML IV ×2 (08:00→17:06)
[2024-04-16] MEDS: Acetaminophen 325 MG Tablet 650 MG PO ×3 (08:00→18:37)
[2024-04-16] MEDS: 0.9% Saline Lock 10 ML Syringe IV (08:01)
[2024-04-16] MEDS: Pantoprazole Sodium 40 MG in 0.9% Normal Saline (100mL MB+) 100 ML 330 MG IV (10:13)
[2024-04-16 10:17] VITALS: BMI 29.9
[2024-04-16 11:24] LABS: Bedside Glucose 141 mg/dL (74-106)
[2024-04-16 14:09] VITALS: BP 166/89; PULSE 75; RESP 16; TEMP 36.7; O2SAT 97
[2024-04-16 14:15] VITALS: BP 166/89; PULSE 75; RESP 16; TEMP 36.7; O2SAT 97
[2024-04-16 15:51] LABS: Pathologist Review Reviewed
[2024-04-16 16:51] LABS: Bedside Glucose 115 mg/dL (74-106)
[2024-04-16 18:25] VITALS: BMI 29.9
[2024-04-16 21:47] VITALS: BP 155/80; PULSE 98; RESP 16; TEMP 37.2; O2SAT 96
[2024-04-17 00:02] LABS: Bedside Glucose 129 mg/dL (74-106)
[2024-04-17] MEDS: Acetaminophen 325 MG Tablet 650 MG PO ×4 (00:44→21:22)
[2024-04-17 04:39] VITALS: BP 158/86; PULSE 103; RESP 20; TEMP 37.2; O2SAT 96
[2024-04-17 06:59] LABS: Absolute Lymphocyte Count 1.58 X10^3/uL (0.83-4.51); Absolute Neutrophil Count 10.7 X10^3/uL (2.0-7.7); Basophil# 0.03 X10^3/uL; Basophil% 0.2 % (0-1); Eosinophil# 0.14 X10^3/uL; Hematocrit 40.2 % (40-54); Hemoglobin 12.5 g/dL (13.0-16.5); Lymphocyte # 1.58 X10^3/ul (0.83-4.51); Lymphocyte % 11.4 % (19-41); Mean Corp Hgb Conc 31.1 g/dL (32-36); Mean Corpuscular Hgb 26.2 pg (27.0-32.0); Mean Corpuscular Volume 84.1 fL (80-94); Mean Platelet Vol. 9.5 fl (6.2-12.0); Monocyte# 1.28 X10^3/uL; Monocyte% 9.2 % (0-10); NRBC Flagged by Analyzer 0 % (0-5); Neutrophil # 10.72 X10^3/uL (2.7-7.7); Neutrophil % 77.5 % (47-70); Platelet Count 424 K/mm3 (150-450); RBC Distribution Width CV 13.9 % (11.6-14.6); RBC Distribution Width SD 42.5 fl (35.1-43.9); Red Blood Count 4.78 M/mm3 (4.6-6.2); White Blood Count 13.8 K/mm3 (4.4-11.0)
[2024-04-17 07:50] LABS: Anion Gap 9 (5-15); BUN 9 mg/dL (7-18); BUN/Creat Ratio 11.2 RATIO (10-20); Calcium,Total 8.7 mg/dL (8.5-10.1); Chloride 104 mmol/L (98-107); EST Glomerular Filtration Rate 103 mL/min (>60); Est Glom Filt Rate - Afr Amer 124 mL/min (>60); Estimated Creatinine Clearance 99.95 ml/min; Glucose 129 mg/dL (74-106); Potassium 3.6 mmol/L (3.5-5.1); Sodium Level 137 mmol/L (136-145)
[2024-04-17 09:18] VITALS: PULSE 90
[2024-04-17 09:26] VITALS: BP 157/91; PULSE 81; RESP 20; TEMP 36.9; O2SAT 98
[2024-04-17] MEDS: Pantoprazole Sodium 40 MG in 0.9% Normal Saline (100mL MB+) 100 ML 330 MG IV (10:31)
[2024-04-17] MEDS: 0.9% Saline Lock 10 ML Syringe IV (10:31)
[2024-04-17 15:00] VITALS: BP 149/86; PULSE 86; PULSE 90; RESP 18; TEMP 37.4; O2SAT 97
[2024-04-17] MEDS: 0.9% Normal Saline (1000mL) 1,000 ML 15 ML IV (15:12)
--- NOTE | 2024-04-17 15:26 | EKG12_ITS ---
Test Reason : PRESSURE Blood Pressure : */* mmHG Vent. Rate : 79 BPM Atrial Rate : 79 BPM P-R Int : 142 ms QRS Dur : 76 ms QT Int : 402 ms P-R-T Axes : 31 30 45 degrees QTcB Int : 460 ms Normal sinus rhythm Normal ECG When compared with ECG of 12-Apr-2024 12:48, No significant change was found Confirmed by JOHN KRAFT, MORA ([id number]), newspaper or periodical editor PHYLICIA TUCKER ([id number]) on 04/18/2024 9:57:37 AM Referred By: LILI Confirmed By: MORA LOPEZ MD
[2024-04-17 15:34] LABS: Bedside Glucose 112 mg/dL (74-106)
--- NOTE | 2024-04-17 15:35 | RAD_ITS ---
STUDY: X-RAY CHEST REASON FOR EXAM: Male, 63 years old. cough TECHNIQUE: Single AP portable view of the chest. COMPARISON: None. FINDINGS: Relatively low lung volumes. Focal density in the right lung base most consistent with subsegmental atelectasis. No definite infiltrates. No definite effusions. Normal size heart. Normal mediastinum and jada. Normal visualized pulmonary arteries. Normal visualized aortic arch and descending thoracic aorta. Normal visualized thoracic spine. Normal visualized ribs, clavicles, and shoulders. There is no demonstrated abnormality of the visualized soft tissue structures of the upper abdomen. RAD/Chest 1 View (Portable) IMPRESSION: Relatively low lung volumes with focal subsegmental atelectasis in the right lung base. Otherwise negative. Electronically Signed: Porfirio Christianson MD at 17:02 EST ,
[2024-04-17 17:33] LABS: Bedside Glucose 97 mg/dL (74-106)
[2024-04-17 20:16] VITALS: BP 142/80; PULSE 84; RESP 18; TEMP 37.1; O2SAT 99
[2024-04-18 02:28] VITALS: BP 144/80; PULSE 84; RESP 18; TEMP 36.7; O2SAT 98
[2024-04-18 03:39] LABS: Bedside Glucose 119 mg/dL (74-106)
[2024-04-18] MEDS: Acetaminophen 325 MG Tablet 650 MG PO ×4 (04:11→22:43)
[2024-04-18 05:57] LABS: Absolute Lymphocyte Count 2.07 X10^3/uL (0.83-4.51); Absolute Neutrophil Count 8.6 X10^3/uL (2.0-7.7); Basophil# 0.06 X10^3/uL; Basophil% 0.5 % (0-1); Eosinophils% 3.9 % (0-5); Hematocrit 37.3 % (40-54); Hemoglobin 11.9 g/dL (13.0-16.5); Lymphocyte # 2.07 X10^3/ul (0.83-4.51); Lymphocyte % 16.3 % (19-41); Mean Corp Hgb Conc 31.9 g/dL (32-36); Mean Corpuscular Hgb 26.6 pg (27.0-32.0); Mean Corpuscular Volume 83.3 fL (80-94); Mean Platelet Vol. 9.3 fl (6.2-12.0); Monocyte# 1.39 X10^3/uL; Monocyte% 10.9 % (0-10); NRBC Flagged by Analyzer 0 % (0-5); Neutrophil # 8.57 X10^3/uL (2.7-7.7); Neutrophil % 67.3 % (47-70); Platelet Count 432 K/mm3 (150-450); RBC Distribution Width SD 42.7 fl (35.1-43.9); Red Blood Count 4.48 M/mm3 (4.6-6.2); White Blood Count 12.7 K/mm3 (4.4-11.0)
[2024-04-18 06:38] LABS: Bedside Glucose 112 mg/dL (74-106)
[2024-04-18 06:53] LABS: Anion Gap 8 (5-15); BUN 10 mg/dL (7-18); BUN/Creat Ratio 12.5 RATIO (10-20); Calcium,Total 8.8 mg/dL (8.5-10.1); Chloride 104 mmol/L (98-107); EST Glomerular Filtration Rate 103 mL/min (>60); Est Glom Filt Rate - Afr Amer 125 mL/min (>60); Estimated Creatinine Clearance 99.95 ml/min; Glucose 102 mg/dL (74-106); Potassium 3.2 mmol/L (3.5-5.1); Sodium Level 136 mmol/L (136-145)
--- NOTE | 2024-04-18 07:23 | PCM.PN.SRG ---
Subjective Subjective Patient was taught having a bowel function. He has no other complaints. Objective Data Objective Data Vital Signs: Vital Signs Temp Pulse Resp BP Pulse Ox O2 Del Method O2 Flow Rate 98.1 F 84 18 144/80 H 98 Room Air 2 04/18/24 02:28 04/18/24 02:28 04/18/24 02:28 04/18/24 02:28 04/18/24 02:28 04/18/24 02:28 04/15/24 14:00 Oxygen Flow Rate (L/min) 2 Oxygen Delivery Method Room Air Weight: 196 lb 13.965 oz Body Mass Index (BMI) 29.9 Intake & Output: Intake and Output for Last 24 Hours 04/16/24 04/17/24 04/18/24 23:59 23:59 23:59 Intake Total 2113.58 / 2573.58 2110 / 2110 40 / 40 Output Total 550 / 550 1175 / 1175 Balance 1563.58 / 2023.58 935 / 935 40 / 40 Lab / Micro Data 04/18/24 05:07 04/18/24 05:07 Labs: Laboratory Results - last 24 hr 04/17/24 06:06: Sodium 137, Potassium 3.6, Chloride 104, Carbon Dioxide 24.0, Anion Gap 9, BUN 9, Creatinine 0.80, Estim Creat Clear Calc 99.95, Est GFR (MDRD) Af Amer 124, Est GFR (MDRD) Non-Af 103, BUN/Creatinine Ratio 11.2, Glucose 129 H, Calcium 8.7 04/17/24 11:34: POC Glucose 112 H 04/17/24 17:15: POC Glucose 97 04/18/24 02:33: POC Glucose 119 H 04/18/24 05:07: WBC 12.7 H, RBC 4.48 L, Hgb 11.9 L, Hct 37.3 L, MCV 83.3, MCH 26.6 L, MCHC 31.9 L, RDW Std Deviation 42.7, RDW Coeff of Roel 14.0, Plt Count 432, MPV 9.3, Immature Gran % (Auto) 1.100 H, Neut % (Auto) 67.3, Lymph % (Auto) 16.3 L, [place] % (Auto) 10.9 H, Eos % (Auto) 3.9, Baso % (Auto) 0.5, Absolute Neuts (auto) 8.6 H, Absolute Lymphs (auto) 2.07, Nucleated RBC % 0, Sodium 136, Potassium 3.2 L, Chloride 104, Carbon Dioxide 25.0, Anion Gap 8, BUN 10, Creatinine 0.80, Estim Creat Clear Calc 99.95, Est GFR (MDRD) Af Amer 125, Est GFR (MDRD) Non-Af 103, BUN/Creatinine Ratio 12.5, Glucose 102, Calcium 8.8 04/18/24 06:20: POC Glucose 112 H Micro: Microbiology 04/12/24 12:46 Mucosa - Nasopharyngeal SARS-CoV-2, Influenza & RSV (PCR) - Final Radiography Diagnostic Testing: Radiology Impression Chest X-Ray 04/17/24 15:35 IMPRESSION: Relatively low lung volumes with focal subsegmental atelectasis in the right lung base. Otherwise negative. Electronically Signed: Porfirio Christianson MD at 17:02 EST , Physical Exam Const oriented x3 and no apparent distress Resp normal respiratory effort GI soft to palpation Assessment & Plan Assessment/Plan (1) Small bowel obstruction: PLAN: Patient is postoperative day 2 from laparotomy for small bowel obstruction. He is not having a bowel function yet. He reports that when he had his colectomy it took 10 days for him to resume bowel function. Continue to await flatus. Patient is hypokalemic and this will be replaced. Eduardo Loomis MD Pager: [facility] [address] [place] [address], [address] [place] [address] Office:
[2024-04-18 10:06] VITALS: BP 150/86; PULSE 89; RESP 17; TEMP 36.5; O2SAT 97
[2024-04-18] MEDS: Potassium Chloride Oral Tablet 20 MEQ 40 MEQ PO (10:19)
[2024-04-18] MEDS: Pantoprazole Sodium 40 MG in 0.9% Normal Saline (100mL MB+) 100 ML 330 MG IV (10:19)
[2024-04-18 12:06] LABS: Bedside Glucose 119 mg/dL (74-106)
[2024-04-18 13:31] VITALS: BP 150/75; PULSE 78; RESP 15; TEMP 36.6; O2SAT 93
[2024-04-18] MEDS: 0.9% Saline Lock 10 ML Syringe IV (13:33)
[2024-04-18] MEDS: Ondansetron 4 MG/2 ML Vial IV (13:34)
[2024-04-18 17:27] VITALS: BP 151/96; PULSE 107; RESP 17; TEMP 36.8; O2SAT 97
[2024-04-18 19:17] LABS: Bedside Glucose 113 mg/dL (74-106)
[2024-04-18 20:02] VITALS: BP 142/83; PULSE 89; RESP 16; TEMP 36.7; O2SAT 99
[2024-04-18 23:31] LABS: Bedside Glucose 107 mg/dL (74-106)
[2024-04-19 04:37] VITALS: BP 150/82; PULSE 76; RESP 16; TEMP 36.6; O2SAT 98
[2024-04-19] MEDS: Acetaminophen 325 MG Tablet 650 MG PO ×4 (04:43→23:13)
[2024-04-19 07:13] LABS: Bedside Glucose 124 mg/dL (74-106)
[2024-04-19 08:27] VITALS: BP 144/84; PULSE 82; RESP 16; TEMP 36.4; O2SAT 99
[2024-04-19] MEDS: Pantoprazole Sodium 40 MG in 0.9% Normal Saline (100mL MB+) 100 ML 330 MG IV (08:34)
--- NOTE | 2024-04-19 10:18 | PCM.PN.SRG ---
Subjective Subjective Patient states that he has been tolerating clears since last evening without difficulty. He states that he is also began passing flatus and has had some stool. He states that he feels significantly better since his bowels seem to open up. He seems to be in much better spirits. Objective Data Objective Data Vital Signs: Vital Signs Temp Pulse Resp BP Pulse Ox O2 Del Method O2 Flow Rate 97.6 F L 82 16 144/84 H 99 Room Air 2 04/19/24 08:27 04/19/24 08:27 04/19/24 08:27 04/19/24 08:27 04/19/24 08:27 04/19/24 08:27 04/15/24 14:00 Oxygen Flow Rate (L/min) 2 Oxygen Delivery Method Room Air Weight: 196 lb 13.965 oz Body Mass Index (BMI) 29.9 Intake & Output: Intake and Output for Last 24 Hours 04/17/24 04/18/24 04/19/24 23:59 23:59 23:59 Intake Total 2110 / 2110 270 / 270 610 / 610 Output Total 1175 / 1175 650 / 650 500 / 500 Balance 935 / 935 -380 / -380 110 / 110 Lab / Micro Data 04/18/24 05:07 04/18/24 05:07 Labs: Laboratory Results - last 24 hr 04/18/24 11:47: POC Glucose 119 H 04/18/24 17:31: POC Glucose 113 H 04/18/24 22:48: POC Glucose 107 H 04/19/24 06:55: POC Glucose 124 H Micro: Microbiology 04/12/24 12:46 Mucosa - Nasopharyngeal SARS-CoV-2, Influenza & RSV (PCR) - Final Physical Exam Narrative He is alert and oriented x 3. He is in no acute distress. Abdomen is soft and slightly distended. Incision dressing seems clean dry and intact. Abdomen is appropriately tender given the recent surgery Assessment & Plan Assessment/Plan (1) Small bowel obstruction: PLAN: Plan Patient is postoperative day #3 from a diagnostic laparoscopy converted to exploratory laparotomy and release of a small bowel obstruction. Clinically he is doing much better and is now passing flatus and stool. He has tolerated clear liquid diet thus far. I am going to advance his diet to full liquid diet. I recommend that he progress slowly and certainly if he has any nausea or bloating or distention, he should cut back on oral intake. I encouraged him to continue to be up and ambulating. He is hopeful that he can possibly be discharged tomorrow if possible.
[2024-04-19 12:36] LABS: Bedside Glucose 171 mg/dL (74-106)
[2024-04-19 15:26] VITALS: BP 149/77; PULSE 84; RESP 14; TEMP 36.6; O2SAT 100
[2024-04-19] MEDS: BENZOCAINE/MENTHOL 1 LOZENGE MUCOUS MEM ×2 (19:03→21:00)
[2024-04-19 20:49] VITALS: BP 129/59; PULSE 80; RESP 18; TEMP 36.6; O2SAT 100
[2024-04-19 22:03] LABS: Bedside Glucose 187 mg/dL (74-106)
[2024-04-20 00:38] LABS: Bedside Glucose 133 mg/dL (74-106)
[2024-04-20 05:53] VITALS: BP 155/80; PULSE 73; RESP 16; TEMP 36.6; O2SAT 98
[2024-04-20] MEDS: Acetaminophen 325 MG Tablet 650 MG PO ×2 (06:07→09:45)
[2024-04-20 06:16] LABS: Bedside Glucose 132 mg/dL (74-106)
[2024-04-20] MEDS: Pantoprazole Sodium 40 MG in 0.9% Normal Saline (100mL MB+) 100 ML 330 MG IV (09:07)
[2024-04-20 09:21] VITALS: BP 137/79; PULSE 81; RESP 16; TEMP 36.4; O2SAT 99
--- NOTE | 2024-04-20 11:41 | PCM.DC.SUM ---
Providers Date of Admission: 04/12/24 Date of Discharge: 04/20/24 Primary Care Physician: Dr. Bret Mendoza DO Reason For Visit: SMALL BOWEL OBSTRUCTION Diagnosis Discharge Diagnosis (1) Small bowel obstruction: Status: Acute Code(s): K56.609 - Unspecified intestinal obstruction, unspecified as to partial versus complete obstruction Plan Patient is postoperative day #3 from a diagnostic laparoscopy converted to exploratory laparotomy and release of a small bowel obstruction. Clinically he is doing much better and is now passing flatus and stool. He has tolerated clear liquid diet thus far. I am going to advance his diet to full liquid diet. I recommend that he progress slowly and certainly if he has any nausea or bloating or distention, he should cut back on oral intake. I encouraged him to continue to be up and ambulating. He is hopeful that he can possibly be discharged tomorrow if possible. Medications at Discharge Home Medications glimepiride 1 mg tablet 1 mg PO DAILY DM 04/12/24 losartan 25 mg tablet 25 mg PO DAILY . 04/12/24 metformin 1,000 mg tablet 1,000 mg PO BID DM 04/12/24 montelukast 10 mg tablet 10 mg PO DAILY . 04/12/24 pioglitazone 45 mg tablet 45 mg PO DAILY . 04/12/24 Hospital Course Operations - (Diagnostic laparoscopy converted to an open laparotomy with release of small bowel obstruction) Summary of Care Provided Minutes Spent on Discharge: 15 Hospital Course: The patient is a 63-year-old male who presented about a week ago to the emergency room with a small bowel obstruction. He initially underwent a small bowel follow-through which seems to indicate no obstruction however once he was placed on diet, his symptoms recurred. He was taken to the operating room for diagnostic laparoscopy to identify and release the bowel obstruction however this was not able to be performed laparoscopically and so an open laparotomy was performed. Patient initially was slow to regain bowel function however the last couple of days his bowel function has returned. He has tolerated diet and is hopeful to go home later today. I encouraged him to maintain a soft diet for period of a couple of days and then slowly advance his diet from there. Physical Exam Narrative The patient is alert and oriented x 3. He is in no acute distress. His abdomen is soft and nondistended. He has mild incisional tenderness to palpation which is appropriate. Dressing is clean dry and intact Weight / BMI Weight Weight: 196 lb 13.965 oz Body Mass Index (BMI) 29.9 ABG / Lab / Microbiology Data 04/18/24 05:07 04/18/24 05:07 Laboratory: Laboratory Results - last 24 hr 04/19/24 11:47: POC Glucose 171 H 04/19/24 17:06: POC Glucose 133 H 04/19/24 21:04: POC Glucose 187 H 04/20/24 05:57: POC Glucose 132 H Microbiology: Microbiology 04/12/24 12:46 Mucosa - Nasopharyngeal SARS-CoV-2, Influenza & RSV (PCR) - Final D/C Instructions Discharge Diet: Light diet - advance as tolerated and Soft diet Discharge Activity: - (Would recommend keeping lifting under 20 pounds for about 6 weeks) May shower in (days): 1 Lifting Restricted to (Lbs): 20 Call your doctor if your incision/area has: Continuous Slow Oozing, Sudden Increased Bleeding, Increased Pain/ Swelling, Increased Redness, Foul Smelling Discharge and Swelling at the incision site Call your doctor if you observe: Fever of 101 or Higher Cleanse incision/area with: Soap & Water (Remove dressing prior to taking shower) DC O2, CPAP, BIPAP Needs Home O2 Discharge instructions: No DC home with Oxygen: No Please Follow Up With: Eduardo Loomis MD When: 2 weeks Meaningful Use Info Meaningful Use Meaningful Use Diagnoses (Choose all that apply): None applicable Ischemic Stroke Statin Dosing Therapy Reference: STATIN DOSE THERAPY REFERENCE: * Patients > 75 years receive moderate or high dose statin therapy. * Patients 75 years or YOUNGER should receive HIGH intensity statin dose unless contraindicated. You will be required to document reason for non-treatment if statin daily dose does not meet guidelines. HIGH DOSE STATIN THERAPY DAILY Atorvastatin > than or = to 40 mg Rosuvastatin > than or = to 20 mg Amlodipine + Atorvastatin > than or = to 2.5/40 mg Ezetimibe + Simvastatin 10/80 mg Simvastatin 80mg Discharge Plan Admission Admit Date/Time: 04/12/24 15:17 Primary Reason for Your Visit: Small bowel obstruction Attending Provider: Eduardo Loomis Primary Care Provider: Bret Mendoza Discharge Orders/Prescriptions Prescriptions: No Action pioglitazone 45 mg tablet 45 mg PO DAILY glimepiride 1 mg tablet 1 mg PO DAILY metformin 1,000 mg tablet 1,000 mg PO BID losartan 25 mg tablet 25 mg PO DAILY montelukast 10 mg tablet 10 mg PO DAILY Referrals / Follow Up: Bret Mendoza DO [Primary Care Provider] - Disposition Disposition (needs filled in before D/C Order can be placed): Home, Self Care
== END 2024-04-20 13:15 | disposition home or self-care (01) | DRG 337 ==
LOC: ED 15:23 → MS3 15:32
PROVIDERS: Anesthesiology; Admitting Provider Surgery; Emergency Provider Emergency Medicine; PCP Family Medicine; Visit Provider Surgery
PROC: 0DN80ZZ Release Small Intestine, Open Approach (ICD-10-PCS; CPT 44202; principal; 2024-04-15 08:55)
DX: K56.51 Intestinal adhesions [bands], with partial obstruction (principal); E86.0 Dehydration; K76.0 Fatty (change of) liver, not elsewhere classified; E87.6 Hypokalemia; Z11.52 Encounter for screening for COVID-19; Z53.31 Laparoscopic surgical procedure converted to open procedure; Z85.038 Personal history of other malignant neoplasm of large intestine; Z90.49 Acquired absence of other specified parts of digestive tract
CPT/HCPCS: 36415; 71045; 74018; 74177; 80048; 80053; 81001; 82962; 83036; 83690; 85025; 87631; 93005; 94668; 99284; J7030; Q9967; A4216; J2405